=== PATIENT | male | born 1960 | race Caucasian/White ===

== ENCOUNTER 2016-06-25 09:27 | Outpatient (CLI) | payer OTHER ==
[2013-03-28 15:11] VITALS: BP 165/87
[2016-06-25 10:18] LABS: eGFR (African) > 60; eGFR (Non-African) 56
== END 2016-06-25 09:30 ==
LOC: LAB 09:27
PROVIDERS: ATTEND Family Medicine
DX: Z00.00 Encounter for general adult medical examination without abnormal findings (principal)
CPT/HCPCS: 36415; 80053; 80061; 83036

== ENCOUNTER 2017-12-03 04:17 | Emergency (ER) | payer OTHER ==
[2017-12-03 04:49] LABS: BASOPHILS % 0.4 (0.0-1.5); EOSINOPHILS % 3.5 % (0.0-6.8); MEAN CORPUSCULAR VOLUME 82.4 fl (80.0-100.0); MONOCYTES % 4.1 % (0.0-11.0); NEUTROPHILS # 5.2 # k/uL (1.4-7.7)
[2017-12-03] MEDS: IPRATROPIUM/ALBUTEROL SULFATE 3 ML AMPUL.NEB NEB ONE ×2 (04:50→04:53)
--- NOTE | 2017-12-03 04:53 | ED Physician Documentation ---
General Adult - HISTORIAN Historian: patient - HPI Stated Complaint: Shortness of Breath Chief Complaint: General Adult Additional Information: SOB more than usual since 11/30. Worse when he cut his grass that day. Typically takes 15 minutes, but he had to stop to rest three times. Worse at baseball game on 12/01 when he pulled a cooler up a hill at ball game. Couldn't sleep last night even with CPAP. Cannot lie flat as it further impedes his breathing. Pulse ox 85% on arrival on ambient air. Feels like something is stuck in the back of his throat. No CP, fever or sweats. Coughs up some small amounts white, but this is not new. Legs are less swollen than usual. Has been seeing Dr. Ann for years for CHF. No HX AMI. Has neuropathy legs with little tactile sensation L lower leg, R heel. HX staph infection L lower ant leg. HX vein stripping. No other modifying factors or associated signs. - ROS CONST: no problems. denies: fever, sweating CVS/RESP: denies: chest pain - PAST HX Past History: hypertension, other (pre-diabetic on Glipizide; see above) Allergies/Adverse Reactions: Allergies Allergy/AdvReac Type Severity Reaction Status Date / Time tetracycline [Tetracycline] AdvReac Unknown Vomiting Verified 12/03/17 04:39 Home Medications: Ambulatory Orders Medication Instructions Recorded Aspirin [Sonia] 81 mg PO DAILY 12/03/17 Clonidine HCl [Catapres] 0.2 mg PO BID 12/03/17 Furosemide [Lasix] 80 mg PO BID 12/03/17 Lisinopril [Zestril] 40 mg PO BID 12/03/17 Minoxidil [Loniten] 5 mg PO BID 12/03/17 - SOCIAL HX Smoking History: non-smoker - FAMILY HX Family History: No - VITAL SIGNS Vital Signs: Vital Signs Temp Pulse Resp BP Pulse Ox 98.2 F 80 26 H 134/77 85 L 12/03/17 04:20 12/03/17 04:35 12/03/17 04:20 12/03/17 04:20 12/03/17 04:20 - REVIEWED ASSESSMENTS Nursing Assessment Reviewed: Yes Vitals Reviewed: Yes Progress - Progress Progress: EKG: sinus rhythm, 80 BPM, no stemi Report Submission Date: Dec 03, 2017 5:24:08 AM CDT Patient Study Name: KOFI MELARA Date: Dec 03, 2017 5:04:49 AM CDT Modality Type: DX Gender: M Description: CHEST : 64 Institution: [facility] Physician: KANDI FRANKLIN - Chest two views History: Shortness of breath and weakness Findings: Cardiomegaly, pulmonary vascular congestion, and pulmonary edema are observed. There is no pleural effusion. Osseous structures are intact. Impression: Congestive heart failure. Electronically signed on Dec 03, 2017 5:24:08 AM CDT by: Hollis Roldan 0537, spoke with dee dee Alcantara sup at [place]. 0540, pt talking freely in extended sentences. Moving more air since [place], 546, accepted for transfer to [facility] per Dr. Mccarthy. ED Results Lab/Radiology - Orders Orders: ED Orders Category Date Time Status Continuous EKG monitoring Q1H Care 12/03/17 04:[address] IV Lock 1T Care 12/03/17 04:35 Completed CHEST 2VIEW [RAD] Stat Exams 12/03/17 Ordered BNP [NT-proBNP] Stat Lab 12/03/17 04:42 Received CBC/PLATELET/DIFF Routine Lab 12/03/17 04:43 Received CMP Routine Lab 12/03/17 04:43 Received TROPONIN I (cTnI) Stat Lab 12/03/17 04:42 Received Ipratropium/Albuterol Sulfate [Duoneb] Med 12/03/17 04:47 Once 3 ml NEB NOW ONE Oxygen Daily Oxygen 12/03/17 04:45 Ordered EKG WITH COMPARISON Stat Ther 12/03/17 Ordered General Adult Physical Exam - PHYSICAL EXAM GENERAL APPEARANCE: moderate distress EENT: eye inspection normal, ENT inspection normal, pharynx normal (Mallampati 1) NECK: normal inspection, supple RESPIRATORY: breath sounds normal (but decreased throughout) CVS: reg rate & rhythm, heart sounds normal, equal pulses, no murmur ABDOMEN: soft (obese), normal bowel sounds, non-tender BACK: normal inspection, no CVA tenderness, other (no vertebral tenderness) SKIN: warm/dry, normal color (except bronzing ant left lower leg) EXTREMITIES: non-tender, no evidence of injury, edema (minimal pitting) NEURO: CN's nml as tested, motor nml, sensation nml, cognition normal Discharge Clincal Impression: Non-STEMI (non-ST elevated myocardial infarction) Referrals: Shanta Gonzalez MD [Primary Care Provider] - 2 Days Condition: Fair Disposition: 02 XFER SHT-TRM HOSP Decision to Admit: NO Decision Time: 05:47
[2017-12-03 05:23] LABS: eGFR (Non-African) 56
--- NOTE | 2017-12-03 05:26 | Diagnostic Imaging Report ---
KANDI FRANKLIN [facility] [address] [facility] [address] [address] Report Submission Date: Dec 03, 2017 5:24:08 AM CDT Patient Study Name: KOFI MELARA Date: Dec 03, 2017 5:04:49 AM CDT Modality Type: DX Gender: M Description: CHEST : 64 Institution: [facility] Physician: KANDI FRANKLIN Chest two views History: Shortness of breath and weakness Findings: Cardiomegaly, pulmonary vascular congestion, and pulmonary edema are observed. There is no pleural effusion. Osseous structures are intact. Impression: Congestive heart failure. Electronically signed on Dec 03, 2017 5:24:08 AM CDT by: Hollis SHER
[2017-12-03] MEDS: ASPIRIN 81 MG CHEW TAB PO ONE (05:48)
[2017-12-03] MEDS: ASPIRIN 81 MG CHEW TAB ONE (05:48)
[2017-12-03 06:10] VITALS: BP 139/78
== END 2017-12-03 06:02 | disposition short-term general hospital (02) ==
LOC: ED 04:17
DX: I21.4 Non-ST elevation (NSTEMI) myocardial infarction (principal)
CPT/HCPCS: 71046; 80053; 83880; 84484; 85025; 87040; 94640; 99284; S1016

== ENCOUNTER 2018-06-12 16:09 | Outpatient (CLI) | payer OTHER | END 2018-06-12 16:10 | LOC: LAB 16:09 | PROVIDERS: ATTEND Family Medicine | DX: E11.9 Type 2 diabetes mellitus without complications (principal) | CPT/HCPCS: 36415; 83036 ==

== ENCOUNTER 2019-02-09 16:24 | Outpatient (CLI) | payer OTHER | END 2019-02-09 16:29 | LOC: LAB 16:24 | PROVIDERS: ATTEND Family Medicine | DX: E11.9 Type 2 diabetes mellitus without complications (principal) | CPT/HCPCS: 36415; 83036 ==